=== PATIENT | male | born 1990 | race Caucasian/White ===

== ENCOUNTER 2017-12-08 09:46 | Inpatient (IN) | payer MEDICAID, OTHER ==
[~2017-12-08] VITALS: Ht 172.7 cm; Wt 71.0 kg
[~2017-12-08 09:46] MED LIST: CIPR-278 PO; METF850T2 PO
[2017-12-08] MEDS ORDERED: INSU100V SQ (09:56)
[2017-12-08] MEDS ORDERED: INSLAN SQ (09:56)
[2017-12-08 10:03] LABS: GLUCOSE,POINT OF CARE 265 MG/DL (70-110)
[2017-12-08] MEDS ORDERED: SODIUM CHLORIDE 0.9% 2,000 ML IV STA (10:50)
[2017-12-08] MEDS ORDERED: KETOROLAC TROMETHAMINE 30 MG/ML VIAL IVP ONE (11:00)
[2017-12-08] MEDS ORDERED: ONDANSETRON HCL 4 MG/2 ML VIAL IVP ONE (11:00)
[2017-12-08 11:07] LABS: BASOPHILS % (AUTO) 0.4 % (0.0-2.0); EOSINOPHILS % (AUTO) 2.9 % (1.0-6.0); HEMATOCRIT 42.1 % (41-53); HEMOGLOBIN 14.1 g/dL (13.5-17.5); LYMPHOCYTES # (AUTO) 1.6 K/uL (1.0-4.8); LYMPHOCYTES % (AUTO) 21.3 % (22.0-44.0); MEAN CORPUSCULAR HEMOGLOBIN 27.1 pg (26.0-34.0); MEAN CORPUSCULAR HGB CONC 33.6 G/dL (31.0-37.0); MEAN CORPUSCULAR VOLUME 81 fL (80-100); NEUTROPHILS # (AUTO) 4.8 K/uL (1.8-7.7); NEUTROPHILS % (AUTO) 62.4 % (40.0-70.0); PLATELET COUNT (AUTO) 339 K/uL (150-450); RED BLOOD CELL COUNT(AUTO) 5.22 MIL/uL (4.50-5.90); RED CELL DISTRIBUTION WIDTH 17.6 % (11.5-14.5)
[2017-12-08 11:15] LABS: ANION GAP 4 mmol/L (8-16); CALCIUM, TOTAL 7.9 mg/dL (8.8-10.5); CARBON DIOXIDE 28 mmol/L (22-29); CHLORIDE 100 mmol/L (98-107); GLOMERULAR FILTR. RATE CALC > 60 mL/min (>60); GLUCOSE,RANDOM 313 mg/dL (70-110); POTASSIUM 5.1 mmol/L (3.5-5.1); SODIUM SERUM 132 mmol/L (136-145); UREA NITROGEN, BLOOD 21 mg/dL (7-18)
[2017-12-08 11:21] LABS: ALANINE AMINOTRANSFERASE 29 U/L (12-78); ALBUMIN 2.7 g/dL (3.4-5.0); ALKALINE PHOSPHATASE 101 U/L (46-116); ASPARTATE AMINOTRANSFERASE 25 U/L (15-37); BILIRUBIN,TOTAL 0.3 mg/dL (0.1-1.0); LIPASE 50 U/L (73-393); TOTAL PROTEIN, SERUM 6.6 g/dL (6.4-8.2)
[2017-12-08] MEDS ORDERED: ZOLPIDEM TARTRATE 10 MG TABLET PO PRN (12:15)
[2017-12-08] MEDS ORDERED: HALOPERIDOL 5 MG TABLET PO PRN (12:15)
[2017-12-08] MEDS ORDERED: LORazepam 2 MG TABLET PO PRN (12:15)
[2017-12-08 13:53] LABS: AMPHET/METH SCREEN,URINE NEGATIVE (NEGATIVE); BARBITURATE SCREEN, URINE NEGATIVE (NEGATIVE); BENZODIAZEPINES SCREEN,URINE NEGATIVE (NEGATIVE); CANNABINOID SCREEN,URINE NEGATIVE (NEGATIVE); COCAINE SCREEN,URINE NEGATIVE (NEGATIVE); METHADONE SCREEN, URINE NEGATIVE (NEGATIVE); OPIATE SCREEN,URINE NEGATIVE (NEGATIVE)
[2017-12-08 13:55] LABS: PHENCYCLIDINE SCREEN,URINE NEGATIVE (NEGATIVE)
[2017-12-08] MEDS ORDERED: SODIUM CHLORIDE 0.9% 1,000 ML IV ONE (14:00)
[2017-12-08 14:08] LABS: APPEARANCE,URINE CLOUDY (CLEAR); BILIRUBIN,URINE NEGATIVE (NEGATIVE); GLUCOSE, URINE (UA) >=1000 mg/dL (NEGATIVE); KETONES,URINE NEGATIVE (NEGATIVE); LEUKOCYTE ESTERASE ,URINE NEGATIVE (NEGATIVE); NITRATE,URINE NEGATIVE (NEGATIVE); OCCULT BLOOD,URINE NEGATIVE (NEGATIVE); PROTEIN,URINE NEGATIVE (NEGATIVE); UROBILINOGEN,URINE 0.2 mg/dL (<=1.0)
[2017-12-08 14:21] LABS: BACTERIA,URINE Rare /HPF (None Seen); MUCUS,URINE Many LPF (None Seen); RENAL EPITHELIAL CELLS,URINE Few /LPF (None Seen); SQUAMOUS EPITHELIAL CELL,UR Few /LPF (None Seen); TRANSITIONAL EPI CELLS,URINE Few /LPF (None Seen)
[2017-12-08 14:28] LABS: GLUCOSE,POINT OF CARE 244 MG/DL (70-110)
[2017-12-08] MEDS ORDERED: RINGERS SOLUTION,LACTATED 1,000 ML IV ONE (15:30)
[2017-12-08 17:49] LABS: C.DIFF GDH ANTIGEN, Stool Negative (Negative); C.DIFF TOXINS A&B, Stool Negative (Negative)
[2017-12-08] MEDS ORDERED: IOVERSOL 350 MG/ML 100 ML VIAL ONE (18:25)
[2017-12-08] MEDS ORDERED: SODIUM CHLORIDE 0.9% 300 ML ONE (18:26)
[2017-12-08 19:32] LABS: GLUCOSE,POINT OF CARE 195 MG/DL (70-110)
[2017-12-08] MEDS ORDERED: CloNIDine HCL 0.1 MG TABLET PO PRN (20:15)
[2017-12-08] MEDS ORDERED: MAGNESIUM HYDROXIDE SUSPENSION 30 ML UDCUP PO PRN (20:15)
[2017-12-08] MEDS ORDERED: ACETAMINOPHEN 325 MG TABLET PO PRN (20:15)
[2017-12-08] MEDS ORDERED: BENZOCAINE/MENTHOL LOZENGE [8 LOZENGES/PACKET] MM PRN (20:15)
[2017-12-08] MEDS ORDERED: BACITRACIN 28.4 GM OINTMENT TP PRN (20:15)
[2017-12-08] MEDS ORDERED: PETROLATUM,WHITE 71 GM JELLY TP PRN (20:15)
[2017-12-08] MEDS ORDERED: ONDANSETRON HCL 4 MG TABLET PO PRN (20:15)
[2017-12-08] MEDS ORDERED: ALBUTEROL SULFATE HFA 90 MCG/PUFF 8 GM INHALER IH PRN (20:15)
[2017-12-08] MEDS ORDERED: LOPERAMIDE HCL 2 MG CAPSULE PO PRN (20:15)
[2017-12-08] MEDS ORDERED: MAG HYDROX/AL HYDROX/SIMETH ES 30 ML SUSPENSION UDCUP PO PRN (20:15)
[2017-12-09 04:30] VITALS: BP 102/59
[2017-12-09 04:31] VITALS: BP 102/59
[2017-12-09 06:27] LABS: GLUCOMETER DEV NAME(LOC) 3EI B; GLUCOSE,POINT OF CARE 249 MG/DL (70-110)
[2017-12-09] MEDS ORDERED: -PHARMACY VACCINE NOTE- MISC ONE (06:30)
[2017-12-09 06:37] LABS: CHOL/HDL RATIO 5.2 (4.2-7.3); THYROID STIMULATING HORMONE 0.98 uIU/mL (0.36-3.74)
[2017-12-09 08:49] VITALS: BP 104/64
[2017-12-09] MEDS ORDERED: DOCUSATE SODIUM 100 MG CAPSULE PO SCH (09:00)
[2017-12-09] MEDS ORDERED: OMEPRAZOLE 20 MG CAPSULE PO SCH (09:00)
[2017-12-09 11:52] LABS: GLUCOMETER DEV NAME(LOC) 3EI B; GLUCOSE,POINT OF CARE 245 MG/DL (70-110)
[2017-12-09] MEDS: INSULIN LISPRO 100 UNITS/ML SQ SCH ×2 (11:52→17:41)
[2017-12-09] MEDS: BusPIRone HCL 5 MG TABLET PO SCH (17:32)
[2017-12-09 17:38] LABS: GLUCOMETER DEV NAME(LOC) 3EI B; GLUCOSE,POINT OF CARE 229 MG/DL (70-110)
[2017-12-09] MEDS ORDERED: LOPERAMIDE HCL 2 MG CAPSULE PO PRN (20:15)
[2017-12-09] MEDS ORDERED: LOPERAMIDE HCL 2 MG CAPSULE PO ONE (20:15)
[2017-12-09 20:38] LABS: GLUCOMETER DEV NAME(LOC) 3EI B; GLUCOSE,POINT OF CARE 204 MG/DL (70-110)
[2017-12-09] MEDS ORDERED: INSULIN GLARGINE,HUM.REC.ANLOG 100 UNITS/ML SQ SCH (21:00)
[2017-12-09 21:36] VITALS: BP 115/76
[2017-12-10 06:08] LABS: GLUCOMETER DEV NAME(LOC) 3EI B; GLUCOSE,POINT OF CARE 245 MG/DL (70-110)
[2017-12-10 06:21] VITALS: BP 106/67
[2017-12-10] MEDS: INSULIN LISPRO 100 UNITS/ML SQ SCH ×2 (06:30→12:03)
[2017-12-10] MEDS ORDERED: OMEGA-3/DHA/EPA/FISH OIL 1,000 MG CAPSULE PO SCH (09:00)
[2017-12-10] MEDS ORDERED: MULTIVITAMINS WITH MINERALS, THERAPEUTIC TABLET PO SCH (09:00)
[2017-12-10 09:20] VITALS: BP 116/68
[2017-12-10] MEDS: BusPIRone HCL 5 MG TABLET PO SCH (10:15)
[2017-12-10 11:57] LABS: GLUCOMETER DEV NAME(LOC) 3EI B; GLUCOSE,POINT OF CARE 165 MG/DL (70-110)
[2017-12-10 13:45] VITALS: BP 114/66
[2017-12-10] MEDS ORDERED: MULT-1239 PO (14:48)
[2017-12-10] MEDS ORDERED: OMEG-135 PO (14:48)
[2017-12-10] MEDS ORDERED: BUSP5TAB20 PO (14:48)
[2017-12-10] MEDS ORDERED: MOM30 PO (15:02)
[2017-12-10] MEDS ORDERED: PETR5OIN3 TP (15:02)
[2017-12-10] MEDS ORDERED: MAAES30 PO (15:02)
[2017-12-10] MEDS ORDERED: ALBU8HFA IH (15:02)
[2017-12-10] MEDS ORDERED: LOPE2 PO (15:02)
[2017-12-10] MEDS ORDERED: ONDA4 PO (15:02)
[2017-12-10] MEDS ORDERED: ACET-2247 PO (15:02)
[2017-12-10] MEDS ORDERED: CLON-570 PO (15:02)
[2017-12-10] MEDS ORDERED: BENZ1LOZ68 PO (15:02)
[2017-12-10] MEDS ORDERED: BACI3.5O22 TP (15:02)
[2017-12-10 19:38] LABS: GLUCOMETER DEV NAME(LOC) 6N 2D; GLUCOSE,POINT OF CARE 251 MG/DL (70-110)
== END 2017-12-10 12:38 | disposition short-term general hospital (02) | DRG 751 ==
LOC: EMS 09:47 → 3EI 12:24 → UNDOADMIN 12:24 → 3EI 12-09 01:30
DX: F33.2 Major depressive disorder, recurrent severe without psychotic features (principal); E87.1 Hypo-osmolality and hyponatremia; R45.851 Suicidal ideations; E10.9 Type 1 diabetes mellitus without complications; E55.9 Vitamin D deficiency, unspecified; E78.5 Hyperlipidemia, unspecified; G47.00 Insomnia, unspecified; R19.7 Diarrhea, unspecified; F41.1 Generalized anxiety disorder; Z79.4 Long term (current) use of insulin; Z79.84 Long term (current) use of oral hypoglycemic drugs; Z79.899 Other long term (current) drug therapy
CPT/HCPCS: 74177; 82271; 82306; 82962; 84443; 87045; 87324; 87449; 89055; J1815; J1885; J2405; J7030; J7050; J7120